=== PATIENT | female | born 1985 | race Caucasian/White ===

== ENCOUNTER 2017-08-08 21:09 | Emergency (ER) | payer OTHER, BC ==
[~2017-08-08] VITALS: Ht 165.1 cm; Wt 106.9 kg
[~2017-08-08 21:09] MED LIST: FLINTSTONES1 TABLET PO; Feosol PO; Motrin PO; Normodyne,Trandate PO; Paxil PO; Percocet 5/325,Endoc PO; Reglan IV; TYLENOL REGULA325 MG PO
[2017-08-08 22:02] LABS: APPEARANCE CLEAR ((CLEAR)); BILIRUBIN NEGATIVE; BLOOD NEGATIVE; COLOR STRAW ((YELLOW)); GLUCOSE (STRIP) NEGATIVE; KETONES NEGATIVE; LEUKOCYTES NEGATIVE; NITRITE NEGATIVE; PROTEIN (STRIP) NEGATIVE; UCUL ADDED? NO; UROBILINOGEN 0.2 MG/DL (0.2-1.0)
[2017-08-08 22:27] LABS: HEMATOCRIT 38.7 % (36.0-46.0); HEMOGLOBIN 13.1 G/DL (11.9-15.5); MCH 30.5 PG (29.0-34.0); MCHC 33.9 G/DL (30.0-36.0); MCV 90.2 FL (83-99); PLATELET COUNT 241 K/uL (156-360); RBC DIS.WIDTH-SD 39.3 % (39-53); RED BLOOD COUNT 4.29 M/uL (3.80-5.20); WHITE BLOOD COUNT 7.7 K/uL (4.1-10.2)
[2017-08-08 22:46] LABS: ALBUMIN 3.9 g/dL (3.2-4.8)
[2017-08-08 22:47] LABS: CHLORIDE 105 mEq/L (99-109); POTASSIUM 4.3 mEq/L (3.7-5.4); SODIUM 139 mEq/L (136-147)
[2017-08-08 22:49] LABS: GLUCOSE 103 mg/dL (70-99); TOTAL PROTEIN 6.1 g/dL (6.4-8.3)
[2017-08-08 22:51] LABS: TOTAL BILIRUBIN 0.8 mg/dL (0.0-1.0)
[2017-08-08 22:52] LABS: ALKALINE PHOSPHATASE 95 IU/L (3-129)
[2017-08-08 22:53] LABS: CREATININE 0.9 mg/dL (0.6-1.3); GFR ESTIMATE (CALCULATED) > 59 mL/min/
[2017-08-08 22:54] LABS: AST (GOT) 14 IU/L (2-34); UREA NITROGEN (BUN) 12 mg/dL (9-23)
[2017-08-08 22:55] LABS: ALT (GPT) 28 IU/L (3-49)
[2017-08-08 22:56] LABS: LIPASE 19 U/L (1.0-51.0)
[2017-08-08 23:02] LABS: QUANTITATIVE HCG < 4.0 MIU/ML
[2017-08-09] MEDS ORDERED: PEPCID20 MG PO (00:37)
[2017-08-09 00:43] VITALS: BP 118/74
== END 2017-08-09 00:44 | disposition home or self-care (01) ==
LOC: EME 21:09
PROVIDERS: Nurse Practitioner Family
DX: R10.13 Epigastric pain (principal); J45.909 Unspecified asthma, uncomplicated; F32.9 Major depressive disorder, single episode, unspecified; Z90.49 Acquired absence of other specified parts of digestive tract
CPT/HCPCS: 74177; 80053; 81003; 83690; 84702; 85027; 99281; 99285; J1885; J2765; J7030; S0028